=== PATIENT | female | born 1985 | race Caucasian/White ===

== ENCOUNTER 2017-02-14 22:51 | Outpatient (CLI) | payer BC | END 2017-02-15 01:00 | disposition home or self-care (01) | LOC: LDOP 22:51 | PROVIDERS: ATTEND Obstetrics & Gynecology | DX: O26.893 Other specified pregnancy related conditions, third trimester (principal); O99.513 Diseases of the respiratory system complicating pregnancy, third trimester; R10.9 Unspecified abdominal pain; J45.909 Unspecified asthma, uncomplicated; Z3A.35 35 weeks gestation of pregnancy | CPT/HCPCS: 59025; 81003; 87086; 99201; G0463 ==

== ENCOUNTER 2017-03-17 03:05 | Inpatient (IN) | payer BC ==
[~2017-03-17] VITALS: Ht 160 cm; Wt 96.0 kg
[2017-03-17] MEDS ORDERED: OXYTOCIN 30U/ 0.9% NaCL 500ML 500 ML IV ONE (03:46)
[2017-03-17] MEDS ORDERED: LACTATED RINGERS 1,000 ML IV SCH ×2 (03:46→06:42)
[2017-03-17] MEDS ORDERED: D5%-LACTATED RINGERS 1,000 ML IV SCH (03:46)
[2017-03-17] MEDS ORDERED: FENTANYL PF 100 MCG/2ML ONE ×2 (03:50→05:07)
[2017-03-17] MEDS ORDERED: PENICILLIN GK 5,000,000 UNITS in DEXTROSE 5% 100 ML IVPB ONE (04:00)
[2017-03-17] MEDS ORDERED: FENTANYL PF 100 MCG/2ML IV PRN (04:00)
[2017-03-17] MEDS ORDERED: METOCLOPRAMIDE 5 MG/ML, 2ML IVPush PRN (04:00)
[2017-03-17] MEDS ORDERED: TERBUTALINE 1 MG/ML, 1ML IVPush PRN (04:00)
[2017-03-17] MEDS ORDERED: CALCIUM CARBONATE 500 MG TAB.CHEW PO PRN (04:00)
[2017-03-17] MEDS ORDERED: ONDANSETRON 2MG/ML, 2ML IVPush PRN (04:00)
[2017-03-17] MEDS ORDERED: SODIUM CITRATE/CITRIC ACID 30 ML UDC PO PRN (04:00)
[2017-03-17] MEDS: FENTANYL PF 100 MCG/2ML IVPush PRN ×2 (04:01→05:09)
[2017-03-17 04:12] LABS: HEMOGLOBIN 12.9 g/dL (11.7-16.4); WHITE BLOOD COUNT 11.5 x10^3/uL (3.4-10)
[2017-03-17] MEDS ORDERED: FENTANYL/BUPIV./NS/PF 250 ML EPIDCONT ONE ×2 (06:16→19:26)
[2017-03-17] MEDS ORDERED: LIDOCAINE/PF 1.5%-EPI 1:200K, 30ML ONE (06:20)
[2017-03-17] MEDS ORDERED: FENTANYL/BUPIV./NS/PF 250 ML EPIDCONT SCH (06:42)
[2017-03-17] MEDS ORDERED: LACTATED RINGERS 1,000 ML IVBOLUS PRN (07:00)
[2017-03-17] MEDS: PENICILLIN GK 2,500,000 UNITS in DEXTROSE 5% 100 ML IVPB SCH ×5 (07:58→23:52)
[2017-03-17] MEDS ORDERED: OXYTOCIN 30U/ 0.9% NaCL 500ML 500 ML ONE ×3 (08:21→23:42)
[2017-03-17] MEDS ORDERED: OXYTOCIN 30U/ 0.9% NaCL 500ML 500 ML IV PRN (08:30)
[2017-03-17] MEDS ORDERED: ONDANSETRON 2MG/ML, 2ML ONE (13:18)
[2017-03-17] MEDS ORDERED: ACETAMINOPHEN 325 MG TABLET ONE (17:06)
[2017-03-17] MEDS ORDERED: ACETAMINOPHEN 325 MG TABLET PO PRN (17:30)
[2017-03-17 19:38] VITALS: BP 107/54
[2017-03-17] MEDS ORDERED: MISOPROSTOL 200 MCG TABLET ONE (20:32)
[2017-03-17] MEDS ORDERED: LIDOCAINE 1%, 20ML ONE (20:32)
[2017-03-17] MEDS ORDERED: METOCLOPRAMIDE 5 MG/ML, 2ML ONE (20:33)
[2017-03-17] MEDS ORDERED: SODIUM CITRATE/CITRIC ACID 30 ML UDC ONE (20:33)
[2017-03-18] MEDS ORDERED: FENTANYL/BUPIV./NS/PF 250 ML EPIDCONT ONE (03:25)
[2017-03-18] MEDS: PENICILLIN GK 2,500,000 UNITS in DEXTROSE 5% 100 ML IVPB SCH ×2 (04:06→08:24)
[2017-03-18] MEDS ORDERED: OXYTOCIN 30U/ 0.9% NaCL 500ML 500 ML IV SCH (11:43)
[2017-03-18] MEDS ORDERED: METHYLERGONOVINE 0.2 MG/ML IM PRN (12:00)
[2017-03-18] MEDS ORDERED: CARBOPROST TROMETHAMINE 250 MCG/ML, 1ML IM PRN (12:00)
[2017-03-18] MEDS ORDERED: ONDANSETRON 2MG/ML, 2ML IV PRN (12:00)
[2017-03-18] MEDS ORDERED: ACETAMINOPHEN 325 MG TABLET PO PRN (12:00)
[2017-03-18] MEDS ORDERED: MISOPROSTOL 200 MCG TABLET PR PRN (12:00)
[2017-03-18] MEDS ORDERED: CALCIUM CARBONATE 500 MG TAB.CHEW PO PRN (12:00)
[2017-03-18] MEDS ORDERED: OXYcodone/APAP 5/325MG TABLET PO PRN (12:00)
[2017-03-18] MEDS ORDERED: OXYTOCIN 30U/ 0.9% NaCL 500ML 500 ML ONE (12:04)
[2017-03-18] MEDS ORDERED: OXYcodone/APAP 5/325MG TABLET ONE (12:20)
[2017-03-18] MEDS: OXYcodone/APAP 5/325MG TABLET PO PRN ×3 (12:23→21:24)
[2017-03-18 16:30] VITALS: BP 123/75
[2017-03-18 19:20] LABS: HEMATOCRIT 33.2 % (34.6-47.8); HEMOGLOBIN 10.9 g/dL (11.7-16.4); WHITE BLOOD COUNT 19.2 x10^3/uL (3.4-10)
[2017-03-18 19:35] LABS: DIFF TOTAL CELLS COUNTED 100 CELL DIFF
[2017-03-18 19:38] LABS: ANISOCYTOSIS 1+; LARGE PLATELETS 1+; VERIFY COUNTS? YES
[2017-03-18 20:10] VITALS: BP 127/86
[2017-03-18] MEDS: DOCUSATE 100 MG CAPSULE PO PRN (21:24)
[2017-03-18] MEDS: IBUPROFEN 600 MG TABLET PO PRN (21:24)
[2017-03-18 23:20] VITALS: BP 121/70
[2017-03-19] MEDS: OXYcodone/APAP 5/325MG TABLET PO PRN ×3 (02:19→20:05)
[2017-03-19] MEDS: IBUPROFEN 600 MG TABLET PO PRN ×2 (07:20→15:34)
[2017-03-19] MEDS: DOCUSATE 100 MG CAPSULE PO PRN ×2 (07:21→20:05)
[2017-03-19 08:00] VITALS: BP 107/65
[2017-03-19] MEDS ORDERED: PRENATAL VIT/IRON/FA 1 EACH TABLET PO SCH (09:00)
[2017-03-19 20:00] VITALS: BP 107/73
[2017-03-20] MEDS: IBUPROFEN 600 MG TABLET PO PRN ×2 (00:31→11:58)
[2017-03-20] MEDS: OXYcodone/APAP 5/325MG TABLET PO PRN (07:04)
[2017-03-20 08:00] VITALS: BP 112/78
[2017-03-20] MEDS ORDERED: OXYC-302 PO (10:40)
[2017-03-20] MEDS ORDERED: IBUP-1222 PO (10:43)
[2017-03-20] MEDS: DOCUSATE 100 MG CAPSULE PO PRN (11:58)
== END 2017-03-20 12:25 | disposition home or self-care (01) | DRG 775 ==
LOC: LDOP 03:05 → LDIP 03:46 → 2NW 03-18 16:12
PROVIDERS: ADMIT Obstetrics & Gynecology; ATTEND Obstetrics & Gynecology
PROC: 0HQ9XZZ Repair Perineum Skin, External Approach (ICD-10-PCS; principal; 2017-03-18)
PROC: 10E0XZZ Delivery of Products of Conception, External Approach (ICD-10-PCS; 2017-03-18)
PROC: 10907ZC Drainage of Amniotic Fluid, Therapeutic from Products of Conception, Via Natural or Artificial Opening (ICD-10-PCS; 2017-03-18)
DX: O77.0 Labor and delivery complicated by meconium in amniotic fluid (principal); O66.0 Obstructed labor due to shoulder dystocia; O69.81X0 Labor and delivery complicated by cord around neck, without compression, not applicable or unspecified; O99.824 Streptococcus B carrier state complicating childbirth; O70.0 First degree perineal laceration during delivery; Z37.0 Single live birth; Z3A.40 40 weeks gestation of pregnancy
CPT/HCPCS: 36415; 82803; 85025; 86850; 86900; J2405; J2540; J3010; J3490; J2590; J7120; J7121